=== PATIENT | female | born 1985 | race Caucasian/White ===

== ENCOUNTER 2021-11-01 21:58 | Inpatient (IN) | payer OTHER, MEDICAID ==
[~2021-11-01] VITALS: Ht 170.2 cm; Wt 133.0 kg
[2021-11-02] MEDS ORDERED: BUTORPHANOL TARTRATE 2 MG/ML VIAL IV PRN (03:00)
[2021-11-02] MEDS ORDERED: MISOPROSTOL 100MCG TABLET VG SCH (03:00)
[2021-11-02] MEDS ORDERED: PENICILLIN G POTASSIUM 5 MMU in DEXT 5% WATER 100 ML IV SCH (03:00)
[2021-11-02] MEDS ORDERED: DEXT 5%/LR + PITOCIN 20UNITS/L 1,000 ML IV SCH ×2 (03:00→08:00)
[2021-11-02] MEDS ORDERED: CARBOPROST TROMETHAMINE 250 MCG/ML AMPUL IM PRN (03:00)
[2021-11-02] MEDS ORDERED: LIDOCAINE HCL 1% 20ML VIAL (Pyxis) INJ INFIL SCH (03:00)
[2021-11-02] MEDS ORDERED: METHYLERGONOVINE MALEATE 0.2 MG/ML IM PRN ×2 (03:00→08:00)
[2021-11-02] MEDS ORDERED: LACTATED RINGERS 1,000 ML IV SCH (03:00)
[2021-11-02] MEDS ORDERED: NALOXONE HCL 0.4 MG/ML 1ML VIAL IM PRN (03:00)
[2021-11-02 04:53] LABS: BASOPHILS % 0.3 % (0.0-2.0); EOSINOPHILS % 0.4 % (0.0-5.0); HEMATOCRIT. 34.5 % (36.0-48.0); HEMOGLOBIN. 11.7 g/dL (12.0-16.0); LYMPHOCYTES % 16.1 % (20.0-50.0); MEAN CORPUSCULAR HEMOGLOBIN 30.2 pg (28.0-32.0); MEAN CORPUSCULAR VOLUME 88.7 fL (81.0-99.0); MEAN PLATELET VOLUME 9.6 fl (7.4-10.4); MONOCYTES % 4.6 % (2.0-8.0); NEUTROPHILS % 78.6 % (40.0-76.0); PLATELET 207 x1000/uL (130-400); RED BLOOD CELL COUNT 3.89 mill/uL (4.2-5.4); RED CELL DISTRIBUTION WIDTH 15.4 % (11.6-14.6)
[2021-11-02 04:54] LABS: CLARITY URINE CLEAR (CLEAR); COLOR URINE YELLOW (YELLOW); KETONES URINE NEGATIVE (NEGATIVE); LEUKOCYTE ESTERASE URINE NEGATIVE (NEGATIVE); NITRITE URINE NEGATIVE (NEGATIVE); OCCULT BLOOD URINE NEGATIVE (NEGATIVE); PH URINE 6.5 (4.5-8.0); PROTEIN URINE NEGATIVE (NEGATIVE); SPECIFIC GRAVITY URINE 1.014 (1.005-1.030); UROBILINOGEN URINE 0.2 E.U./dL (0.2-1.0)
[2021-11-02 05:03] LABS: INR 0.9; PARTIAL THROMBOPLASTIN TIME 29.6 sec (23.4-31.0); PROTHROMBIN TIME 10.2 sec (9.6-11.0)
[2021-11-02 05:12] LABS: *AMPHETAMINES SCREEN URINE NEGATIVE (NEGATIVE); *BARBITURATES SCREEN URINE NEGATIVE (NEGATIVE); *BENZODIAZEPINES SCREEN URINE NEGATIVE (NEGATIVE); *COCAINE SCREEN URINE NEGATIVE (NEGATIVE); CANNABINOID URINE SCREEN NEGATIVE (NEGATIVE); METHADONE URINE SCREEN NEGATIVE (NEGATIVE); OPIATES URINE SCREEN NEGATIVE (NEGATIVE); PHENCYCLIDINE URINE SCREEN NEGATIVE (NEGATIVE)
[2021-11-02 05:34] LABS: HEPATITIS B SURFACE ANTIGEN NEGATIVE
[2021-11-02] MEDS ORDERED: PENICILLIN G POTASSIUM 2.5 MMU in DEXTROSE 5% WATER 50 ML IV SCH (07:00)
[2021-11-02] MEDS ORDERED: RHO(D) IMMUNE GLOBULIN 300 MCG/SYR IM PRN (08:00)
[2021-11-02] MEDS ORDERED: DIPHENHYDRAMINE 25MG CAPSULE PO PRN (08:00)
[2021-11-02] MEDS ORDERED: LANOLIN OINT 7GM TUBE TOP PRN (08:00)
[2021-11-02] MEDS ORDERED: IBUPROFEN 400MG TABLET PO PRN (08:00)
[2021-11-02 09:00] VITALS: BP 101/66
[2021-11-02] MEDS: IBUPROFEN 800MG TABLET PO PRN (11:32)
[2021-11-02 16:00] VITALS: BP 120/60
[2021-11-02 19:30] VITALS: BP 124/77
[2021-11-03 04:00] VITALS: BP 115/65
[2021-11-03 07:30] VITALS: BP 109/71
[2021-11-03 07:54] LABS: BASOPHILS % 0.3 % (0.0-2.0); EOSINOPHILS % 1.3 % (0.0-5.0); HEMOGLOBIN. 11.3 g/dL (12.0-16.0); LYMPHOCYTES % 26.1 % (20.0-50.0); MEAN CORPUSCULAR HEMOGLOBIN 30.5 pg (28.0-32.0); MEAN PLATELET VOLUME 9.3 fl (7.4-10.4); NEUTROPHILS % 67.3 % (40.0-76.0); PLATELET 212 x1000/uL (130-400); RED BLOOD CELL COUNT 3.71 mill/uL (4.2-5.4); RED CELL DISTRIBUTION WIDTH 15.3 % (11.6-14.6)
[2021-11-03] MEDS: PRENATAL VIT/FE FUMARATE/FA TABLET PO SCH (09:06)
[2021-11-03] MEDS: IBUPROFEN 800MG TABLET PO PRN (09:06)
[2021-11-03 16:03] VITALS: BP 113/62
[2021-11-03 22:00] VITALS: BP 126/78
[2021-11-04 06:04] VITALS: BP 121/70
[2021-11-04] MEDS: IBUPROFEN 800MG TABLET PO PRN (08:31)
[2021-11-04] MEDS: PRENATAL VIT/FE FUMARATE/FA TABLET PO SCH (08:31)
== END 2021-11-04 11:30 | disposition home or self-care (01) | DRG 807 ==
LOC: 8 EST LDRP 21:58 → OBSVTOIN 21:58 → 8EST 11-02 08:37
PROVIDERS: ADMIT Obstetrics & Gynecology; ATTEND Obstetrics & Gynecology
PROC: 10E0XZZ Delivery of Products of Conception, External Approach (ICD-10-PCS; principal; 2021-11-02)
DX: O48.0 Post-term pregnancy (principal); Z37.0 Single live birth; O99.214 Obesity complicating childbirth; Z20.822 Contact with and (suspected) exposure to COVID-19; Z3A.40 40 weeks gestation of pregnancy
CPT/HCPCS: 36415; 76805; 76818; 80305; 81003; 85025; 86592; 86703; 86762; 86850; 86900; 87340; 87426; 99281; G0378; J0595; J2540; J2590; J7060